=== PATIENT | male | born 1970 | race American Indian/Alaskan Native ===

== ENCOUNTER 2019-01-26 07:20 | Day surgery (SDC) | payer BC ==
[2019-01-26] VITALS (7 sets, daily range): BP systolic 112–162; BP diastolic 55–98
[~2019-01-26] VITALS: Ht 177.8 cm; Wt 141.9 kg
[~2019-01-26 07:20] MED LIST: NO HOME MEDS
[2019-01-26] MEDS ORDERED: LIDOcaine 0.5% (5mg/ml) 50ml vial ONE (07:36)
[2019-01-26] MEDS ORDERED: cefazolin/dext.iso 2gm/50ml 50 ML IV ONE (08:30)
[2019-01-26] MEDS ORDERED: ceFAZolin 1GM/D5W- ADD-VANTAGE 50 ML IV ONE (08:30)
[2019-01-26] MEDS ORDERED: ringers solution, lacted 1,000 ML IV SCH (08:51)
[2019-01-26] MEDS ORDERED: morphine 4 MG/ML inj SYRINge IV PRN ×2 (08:55)
[2019-01-26] MEDS ORDERED: hydrALAZINE 20mg/ml inj. IV PRN (08:55)
[2019-01-26] MEDS ORDERED: labetalol 20mg/4ml (5mg/ml) syringe IV PRN (08:55)
[2019-01-26] MEDS ORDERED: fentaNYL/PF 50MCG/1 ML 2ML syringe IV PRN ×2 (08:55)
[2019-01-26] MEDS ORDERED: ondansetron/PF 4mg/2ml inj IV PRN (08:55)
[2019-01-26 09:11] LABS: ALANINE AMINOTRANSFERASE 45 U/L (12-78); ALBUMIN 3.7 G/DL (3.4-5.0); ALBUMIN/GLOBULIN RATIO 0.8 (1.1-1.5); ALKALINE PHOSPHATASE 97 IU/L (46-116); ANION GAP 8 (8-16); ASPARTATE AMINO TRANSFERASE 24 U/L (10-37); BILIRUBIN,TOTAL 0.6 MG/DL (0.1-1.0); BLOOD UREA NITROGEN 16 MG/DL (7-18); BUN/CREATININE RATIO 15.1 (5.4-32.0); CALCIUM 8.5 MG/DL (8.5-10.1); CHLORIDE 108 MMOL/L (99-107); CREATININE 1.06 MG/DL (0.60-1.10); GLUCOSE 99 MG/DL (70-104); POTASSIUM 3.6 MMOL/L (3.5-5.1); SODIUM 143 MMOL/L (135-145); TOTAL CARBON DIOXIDE 26.6 MMOL/L (24-32); TOTAL PROTEIN 8.2 G/DL (6.4-8.2); eGFR 74 ML/MIN
[2019-01-26 09:14] LABS: BASOPHILS # (AUTO) 0.1 X10'3 (0-0.2); BASOPHILS % (AUTO) 1.1 % (0-1); EOSINOPHILS # (AUTO) 0.4 X10'3 (0-0.9); EOSINOPHILS % (AUTO) 5.7 % (0-6); HEMATOCRIT 42.3 % (42.0-52.0); HEMOGLOBIN 14.7 g/dl (14.0-17.9); LYMPHOCYTES # (AUTO) 1.7 X10'3 (1.1-4.8); LYMPHOCYTES % (AUTO) 22.1 % (21-51); MEAN CORPUSCULAR HEMOGLOBIN 31.1 PG (27.0-31.0); MEAN CORPUSCULAR HGB CONC 34.8 g/dL (33.0-36.5); MEAN CORPUSCULAR VOLUME 89.4 FL (78-98); MEAN PLATELET VOLUME 9.6 FL (7.4-10.4); MONOCYTES # (AUTO) 0.7 X10'3 (0-0.9); MONOCYTES % (AUTO) 8.3 % (2-12); NEUTROPHILS % (AUTO) 62.8 % (42-75); PLATELET COUNT 233 X10'3 (140-440); RED BLOOD COUNT 4.73 X10'6 (4.70-6.10); RED CELL DISTRIBUTION WIDTH 13.4 % (11.5-14.5); WHITE BLOOD COUNT 7.9 X10'3 (4.5-11.0)
[2019-01-26] MEDS ORDERED: BUPIVAcaine/PF 2.5mg/ml (0.25%) 10ml vial ONE ×2 (11:05→12:17)
[2019-01-26] MEDS ORDERED: midazolam 2 mg/2 ml injection ONE (11:19)
[2019-01-26] MEDS ORDERED: fentaNYL /PF 50mcg/ml 5ml ampule ONE (11:20)
[2019-01-26] MEDS ORDERED: sevoflurane 250ml liquid IH ONE (11:20)
[2019-01-26] MEDS ORDERED: LIDOcaine 2% (20mg/ml) 5ml vial ONE (11:22)
[2019-01-26] MEDS ORDERED: propofol inj 20 ML IV ONE (11:22)
[2019-01-26] MEDS ORDERED: dexamethasone sod phosphate 4mg/ml inj. ONE (11:46)
[2019-01-26] MEDS ORDERED: ondansetron/PF 4mg/2ml inj ONE (11:46)
--- NOTE | 2019-01-26 12:38 | NUR ---
Received from OR via , accompanied by Anesthesiologist DR LEON and report given by Anesthesiolgist. AWAKENS TO VOICE, VITALS STABLE. DRESSING DI. MOHAN PAIN. FINGERS WARM AND PINK.
--- NOTE | 2019-01-26 13:48 | NUR ---
AWAKE AND ORIENTED. VITALS STABLE. DRESSING DI. STATES PAIN IMPROVING. HOME WITH HIS SON AT THIS TIME.
[2019-01-27] MEDS ORDERED: ringers solution, lacted 1,000 ML IV SCH (05:00)
[2019-01-27] MEDS ORDERED: famotidine 20mg tablet PO ONE (05:30)
== END 2019-01-26 13:48 | disposition home or self-care (01) ==
LOC: PAS 07:20
PROVIDERS: ATTEND Orthopaedic Surgery Hand Surgery
DX: T84.84XA Pain due to internal orthopedic prosthetic devices, implants and grafts, initial encounter (principal); S63.592A Other specified sprain of left wrist, initial encounter; Z72.89 Other problems related to lifestyle; E66.01 Morbid (severe) obesity due to excess calories; Z68.41 Body mass index [BMI] 40.0-44.9, adult; Z79.899 Other long term (current) drug therapy; X58.XXXA Exposure to other specified factors, initial encounter; Y93.89 Activity, other specified; Y92.89 Other specified places as the place of occurrence of the external cause; Y99.8 Other external cause status; Y83.8 Other surgical procedures as the cause of abnormal reaction of the patient, or of later complication, without mention of misadventure at the time of the procedure
CPT/HCPCS: 20694; 25320; 36415; 80053; 85025; 93005; A6222; C1713; J0690; J1100; J2001; J2250; J2405; J2704; J3010; J3490; A4215; A4618; A6449; A7000; J7120